=== PATIENT | female | born 1935 | race Caucasian/White ===

== ENCOUNTER 2023-06-23 10:56 | Outpatient (CLI) | payer MEDICARE, SELFPAY ==
[2023-06-23 12:11] LABS: Alanine Aminotransferase 17 U/L (6-35); Albumin Level 4.6 g/dL (3.5-5.1); Alkaline Phosphatase 34 U/L (38-126); Anion Gap 7 mmol/L (8-16); Aspartate Amino Transferase 25 U/L (14-36); Bilirubin,Total 0.8 mg/dL (0.2-1.3); Blood Urea Nitrogen 23 mg/dL (7-17); Calcium 9.1 mg/dL (8.4-10.2); Carbon Dioxide 29 mmol/L (22-30); Chloride 103 mmol/L (98-107); Cholesterol 106 mg/dL (0-200); Estimated Glomerular Filt Rate > 60; Glucose 100 mg/dL (65-110); HDL Direct 40 mg/dL; Sodium 139 mmol/L (137-145); Triglycerides 76 mg/dL (<150)
[2023-06-23 12:20] LABS: LDL Cholesterol Direct 49 mg/dL
== END 2023-06-23 10:57 | disposition home or self-care (01) ==
PROVIDERS: PCP Nurse Practitioner Family
DX: E78.5 Hyperlipidemia, unspecified (principal); I42.8 Other cardiomyopathies
CPT/HCPCS: 36415; 80053; 80061

== ENCOUNTER → 2024-04-12 14:35 | Outpatient (CLI) | payer MEDICARE, SELFPAY ==
--- NOTE | ~2024-04-12 | XR_ITS ---
XR chest 2V Ordering provider: Digna Kim NP History: 88 years Female with . R05.9 - Cough, unspecified x 4days . Comparison: None. FINDINGS: MEDIASTINUM: The cardiac silhouette is slightly enlarged. Left by volar pacemaker is noted. LUNGS: No effusion or pneumothorax. Opacification in the left lower lobe suggestive of atelectasis ve rsus pneumonia. OTHER: No free air under the diaphragm. Degenerative changes of the spine. IMPRESSION: Left basal pneumonia. Reviewed, dictated and finalized at location A. IMPRESSION: Left basal pneumonia.
== END ==
PROVIDERS: PCP Nurse Practitioner Family; Visit Provider Nurse Practitioner Family
DX: J18.9 Pneumonia, unspecified organism (principal)
CPT/HCPCS: 71046

== ENCOUNTER → 2024-05-14 15:13 | Outpatient (CLI) | payer MEDICARE, SELFPAY ==
--- NOTE | ~2024-05-14 | XR_ITS ---
EXAMINATION: XR chest 2V DATE: 05/14/2024 15:27 INDICATION: Cough TECHNIQUE: frontal and lateral views of the chest were obtained. COMPARISON: Chest radiograph dated 04/12/2024 FINDINGS: Unchanged mild linear discoid atelectasis/scarring in the right midlung. No new airspace opacities, p ulmonary edema, pleural effusion or pneumothorax. Cardiomegaly. Three lead pacemaker/AICD seen with l garret projecting over the expected locations of the right atrial appendage, apex of the right ventricl e and with third non venous lead projecting along the left lateral heart border. IMPRESSION: 1. Unchanged mild discoid atelectasis/scarring at the right midlung zone. 2. Cardiomegaly. Reviewed, dictated and finalized at location A.
== END ==
PROVIDERS: PCP Nurse Practitioner Family; Visit Provider Nurse Practitioner Family
DX: I51.7 Cardiomegaly (principal)
CPT/HCPCS: 71046

== ENCOUNTER → 2025-09-18 14:14 | Outpatient (CLI) | payer MEDICARE, SELFPAY ==
--- NOTE | ~2025-09-18 | XR_ITS ---
EXAMINATION: XR shoulder LT min 2V DATE: 09/25/2025 13:16 INDICATION: Pain TECHNIQUE: Left shoulder x-rays were obtained. COMPARISON: None. FINDINGS: The humeral head appears subluxed superiorly and anteriorly. No fracture lucency or dislocation. Advanced degenerative changes about the shoulder noted. Left-sided pacemaking device and wires also noted. IMPRESSION: 1. 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 Some of this displacement could be associated with rotator cuff disruption. 2. No fracture lucency seen. Reviewed, dictated and finalized at location A. ITY CONTROL AUDITOR
--- NOTE | ~2025-09-18 | XR_ITS ---
EXAMINATION: XR knee LT min 4V DATE: 09/25/2025 13:16 INDICATION: Pain TECHNIQUE: Left knee x-ray were obtained. COMPARISON: None. 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 Multiple benign-appearing corticated calcifications present about the joint space which could be associated with previous inflammation, injury or synovial chondromatosis. No large joint effusion seen. IMPRESSION: 1. Severe degenerative changes in the left knee with chronic benign-appearing calcifications and differential considerations discussed above. Reviewed, dictated and finalized at location A. H ARNP IMPRESSION: 1. Severe degenerative changes in the left knee with chronic benign-appearing c alcifications and differential considerations discussed above.
--- NOTE | ~2025-09-18 | XR_ITS ---
EXAMINATION: XR shoulder RT min 2V DATE: 09/25/2025 13:16 INDICATION: Pain TECHNIQUE: Right shoulder x-rays were obtained. COMPARISON: None. FINDINGS: Elevation of the humeral head present with no fracture lucency or dislocation. Advanced degenerative changes about the right shoulder. No gross acute or aggressive bony or soft tissue process seen. IMPRESSION: 1. Degenerative changes about the right shoulder, with elevation of the humeral head which is often associated with rotator cuff disruption or injury. Consider correlation with MRI as clinically appropriate. Reviewed, dictated and finalized at location A. FARMER IMPRESSION: 1. Degenerative changes about the right shoulder, with elevation of the humeral head which is often associated with rotator cuff disruption or injury. Conside r correlation with MRI as clinically appropriate.
--- OUTSIDE RECORDS SUMMARY | 2025-09-18 15:30 | XMS_ITS | Encounter Summary ---
Author Organization [facility] Address [address] [facility] [address] [place] [address] Care Team Providers Care Cover Operator Name Role Phone Dayna Dalton MD Primary Care Provider + [phone] Dayna Dalton MD Primary Care Provider + [phone] Juli Pineda Primary Care Provider Encounter Details Date Type Department Care Team (Late st Contact Info) Description 11/29/2016 Orders Only [facility] Provider, MD Devonte [address] [place] [address] Social History Tobacco Use Types Packs/Day Years Used Date Smoking Tobacco: Never Assessed Comments Unknown Sex and Gender Information Value Date Recorded Sex Assigned at Not on file Legal Sex Female 3:29 AM SUPERVISOR SHEARING Gender Identity Not on file Sexual Orientation Not on file documented as of this encounter Plan of Treatment Not on file documented as of this encounter Procedures Procedure Name Priority Date/Time Associated Diagnosis Comments CARDIOLOGY REPORT 11/29/2016 documented in this encounter Results * CARDIOLOGY REPORT (11/29/2016) Anatomical Region Laterality Modality Other Narrative 11/29/2016 Ordered by an unspecified provider. Historical Provider [facility] ASHLEY MONTOYA Final Result documented in this encounter Visit Diagnoses Not on filedocumented in this encounter Care Teams Cover Operator Relationship Specialty Start Date End Date Dayna Dalton MD PCP - General 01/14/17 12/13/19 Dayna Dalton MD PCP - General 03/07/16 01/13/17 Juli Pineda PA PCP - General Physician Handbag Designer 12/14/19 documented as of this encounter
--- OUTSIDE RECORDS SUMMARY | 2025-09-18 15:30 | XMS_ITS | Encounter Summary ---
Author Organization [facility] Address [address] [facility] [place] [address] Care Team Providers Care Tile Helper Name Role Phone Kwan Aceves MD Unavailable [phone] Celso Pickering MD Unavailable Digna Kim LOBSTERMAN-OFFICE SPECIALIST Primary Care Provider Encounter Details Date Type Department Care Team (Late st Contact Info) Description 09/11/2025 Office Visit External [facility] [address] [place] [address] Farhad Ng, DO 2 [facility] [address] [place] [address] Social History Tobacco Use Types Packs/Day Years Used Date Smoking Tobacco: Former Cigarettes 1 Q uit: 04/03/1979 Smokeless Tobacco: Never Alcohol Use Standard Drinks/Week Comments No 0 (1 standard drink = 0.6 oz pur e alcohol) PHQ-2 Answer Date Recorded PHQ2 TOTAL SCORE 0 02/17/2021 Comments No Sex and Gender Information Value Date Recorded Sex Assigned at Not on file Legal Sex Female 2:13 AM SIGNAL TESTER Gender Identity Not on file Sexual Orientation Not on file documented as of this encounter Functional Status * Is person deaf or have serious hearing difficulty? Answer Date of Assessment Author No 05/30/2014 9:00 PM CDT Jacey mckeon, Lovely Hoover RN * Is person blind or have serious difficulty seeing? Answer Date of Assessment Author No 05/30/2014 9:00 PM CDT Lovely Pryor RN * Does person have serious difficulty walking/climbing stairs? Answer Date of Assessment Author No 05/30/2014 9:00 PM CDT Lovely Pryor RN * Does person have difficulty dressing/bathing? Answer Date of Assessment Author No 05/30/2014 9:00 PM CDT Lovely Pryor RN * Does person have difficulty doing errands alone? Answer Date of Assessment Author No 05/30/2014 9:00 PM CDT Lovely Pryor RN documented as of this encounter Mental Status * Does person have difficulty concentrating/remembering/making decisions? Answer Entry Date Author No 05/30/2014 9:00 PM CDT Lovely Pryor RN documented in this encounter Plan of Treatment Upcoming Encounters Date Type Department Care Team (Late st Contact Info) Description 02/28/2026 1:00 PM CDT Appointment [facility] Cardiovascular Ultrasound [address] [place] [address] Ernestina Olivares, LOBSTERMAN-OFFICE SPECIALIST 2 [facility] [address] [place], [place] [phone] 04/03/2026 2:15 PM CDT Office Visit [facility] 2 [facility], [facility] [address] [place], [place] [phone] Kwan Aceves MD 2 [facility] [address] [place] [phone] 09/08/2026 1:00 PM SIGNAL TESTER Procedure visit [facility] 2 [facility] [address] [place] [address] documented as of this encounter Visit Diagnoses Not on filedocumented in this encounter Care Teams Tile Helper Relationship Specialty Start Date End Date Digna Kim, LOBSTERMAN-OFFICE SPECIALIST [address] [address] [address] [place] [id number] PCP - General Nurse Practitioner 12/14/23 Kwan Aceves MD [address] [address] Cardiovascular Disease 11/13/18 Celso Pickering MD [address] [address] Internal Medicine 08/12/20 documented as of this encounter
--- OUTSIDE RECORDS SUMMARY | 2025-09-18 15:30 | XMS_ITS | Clinical Summary ---
Author Organization [facility] Address [address] [place] [address] Care Team Providers Care Vaccines Solutions Specialist Name Role Phone Juli Pineda Primary Care Provider Allergies Active Allergy Reactions Criticality Noted Date Comments Chandler Inhibitors Cough Reaction: COUGH, Cortisone Hydrocortisone Dizziness Reaction: DIZZINESS, Medications rosuvastatin (CRESTOR) 20 mg tablet Take 20 mg by mouth daily Active carvediloL (COREG) 25 mg tablet Take 25 mg by mouth 2 (two) times a day with meals Active cholecalciferol (VITAMIN D-3) 5,000 unit capsule Take 5,000 Units by mouth daily Active cyanocobalamin (Vitamin B-12) 1,000 mcg tabletIndications :Prevention of Vitamin B12 Deficiency Take 1,000 mcg by mouth daily Active montelukast (SINGULAIR) 10 mg tablet Take 10 mg by mouth nightly Active omega-3 fatty acids 1,250 mg capsule Take 1 capsule by mouth daily Active levocetirizine (XYZAL) 5 mg tablet Take 5 mg by mouth daily 0 Active levothyroxine (SYNTHROID) 75 mcg tablet Take 75 mcg by mouth daily 9 Active losartan (COZAAR) 50 mg tablet Take 50 mg by mouth daily Active cranberry conc/C/Bacill coag (AZO CRANBERRY + PROBIOTIC ORAL) Azo Cranberry + Probiotic 1 tablet daily Active peg 400-propylene glycol (Systane, propylene glycoL,) 0.4-0.3 % ophthalmic solution every 12 hours Activ e rivaroxaban (XARELTO) 20 mg tabletIndications :atrial fibrillation Take 1 tablet (20 mg total) by mouth daily 30 tablet 1 1 Active Active Problems Problem Noted Date Diagnosed Date Other persistent atrial fibrillation 03/03/2020 Assessment & Plan (03/03/2020 3:33 PM CDT): The patient has persistent atrial fibrillation. She has a history of nonischemic cardiomyopathy and is status post biventricular pacing defibrillator. This resulted in significant improvement in her LV function. I am concerned that the onset of atrial fibrillation (accompanied by a decrease in biventricular pacing) will result in progressive LV dysfunction. We discussed options for management. I discussed the merits and drawbacks of AV junction ablation, contrasting it with antiarrhythmic drug therapy and efforts to restore sinus rhythm. The patient is in favor of AV junction ablation, and my office will make the appropriate arrangements to proceed. ICD (implantable cardioverte r-defibrillator), biventricular, in situ 03/03/2020 Overview (02/12/2021): Kline Unify Assura BI-V ICD implanted on 02/09/21 for NICM/CHB. Raheel Diaz MDT RA Lead [id number] 05/30/14 MDT RV Lead [id number] 01/28/14 SJM LV Lead [id number] 10/16/14 Assessment & Plan (03/03/2020 3:33 PM CDT): The patient's device was interrogated and found to be functioning appropriately. No substantial changes to programming were made. The patient's device is followed by Dr. Aceves. Anticoagulation management encounter 03/03/2020 Nonischemic congestive cardiomyopathy 09/30/2014 Overview (01/21/2017): Nonischemic congestive cardiomyopathy ICD (implantable cardioverte r-defibrillator) battery depletion Surgical History Surgery Date Site/Laterality Comments HYSTERECTOMY Hysterectomy BUNIONECTOMY bunionectomy OTHER SURGICAL HISTORY Bi-ventricular ICD Medical History Medical History Date Comments Hx Other Medical Non-ischemic ca rdiomyopathy; Comments: AMB 09/30/2014 - Hx Other Medical congestive hear t failure; Comments: AMB 09/30/2014 - Hx Other Medical hypothyroidism; Comments: AMB 09/30/2014 - Hx Other Medical hypercholestero lemia; Comments: AMB 09/30/2014 - Hx Other Medical arthritis - kne es; Comments: AMB 09/30/2014 - Arrhythmia Atrial fibrillation (HCC) Hypertension Thyroid disease Hyperlipidemia Family History Medical History Relation Name Comments Coronary artery disease Father Justa nary artery disease; Hypertension Father Hypertension; Relation Name Status Comments Father Social History Tobacco Use Types Packs/Day Years Used Date Smoking Tobacco: Never Smokeless Tobacco: Never Comments Unknown Sex and Gender Information Value Date Recorded Sex Assigned at Not on file Legal Sex Female 3:29 AM DRILLER PORTABLE Gender Identity Not on file Sexual Orientation Not on file Last Filed Vital Signs Vital Sign Reading Time Taken Comments Blood Pressure 165/77 02/09/2021 4:35 PM CDT Pulse 60 02/09/2021 4:35 PM CDT Temperature 36 C (96.8 F) 02/09/2021 1:16 PM CDT Respiratory Rate 20 02/09/2021 4:35 PM CDT Oxygen Saturation 98% 02/09/2021 4:35 PM CDT Inhaled Oxygen Concentration - - Weight 92.5 kg (204 lb) 10/07/2020 2:05 PM DRILLER PORTABLE Height 167.6 cm (5' 6) 10/07/2020 2:05 PM DRILLER PORTABLE Body Mass Index 32.93 10/07/2020 2:05 PM DRILLER PORTABLE Plan of Treatment Not on file Medical Devices Implanted Type Area Pipe Crew Foreman Device Identifier Shelf Expiration Date Model / Serial / Lot Particle Medical Inc [id number] System 6-12fr Mvp Venous Closure Vascade - [id number] - [id number] Implanted:Qty : 1 on 03/04/2020 by Celso Pickering MD at [facility] Collagen [employer] 12/04/2021 [id number] / [id number] / [id number] [employer] [id number] Unify Assura Rf Telemetry [id number]-1 Connector [id number] - [id number] - [id number] Implanted:Qty : 1 on 02/09/2021 by Celso Pickering MD at [facility] [id number] 01/14/2023 [id number] / [id number] / Insurance Advance Directives For more information, please contact: [phone] * Full Code (Latest Code Status on File) Date Activated Date Inactivated Comments 03/04/2020 7:29 PM 03/05/2020 10:45 PM Care Teams Vaccines Solutions Specialist Relationship Specialty Start Date End Date Juli Pineda PA PCP - General Physician Public Health 12/14/19
--- OUTSIDE RECORDS SUMMARY | 2025-09-18 15:30 | XMS_ITS | Clinical Summary ---
Author Organization [facility] Address [address] [place] [address] Care Team Providers Care Health Analyst Name Role Phone Digna KimREBECCA Primary Care Provider [phone] Family History Medical History Relation Comments Breast Cancer Neg Hx Social History Tobacco Use Types Packs/Day Years Used Date Smoking Tobacco: Never Assessed Comments Unknown Sex and Gender Information Value Date Recorded Sex Assigned at Not on file Legal Sex Female 9:57 AM SPACE ENGINEER Gender Identity Not on file Sexual Orientation Not on file Plan of Treatment Health Maintenance Due Date Last Done Comments DTaP, Tdap and Td Vaccines (1 - Tdap) 1956 Zoster Vaccines (1 of 2) 1987 Annual Medicare Wellness Visit 2002 COVID-19 Vaccine ( season) 2025 08/17/2023, 09/29/2022, 08/08/2021, Additional history exists Influenza Adult (#1) 2025 08/12/2020, 08/14/2019, 08/18/2018, Additional history exists Pneumococcal Vaccine: 50+ Years Completed 11/13/2018, 09/27/2017, 10/04/2016 RSV Immunization or 60+ Years Completed 09/29/2023 Hepatitis A Vaccines Aged Out No long er eligible based on patient's age to complete this topic Meningococcal B Vaccine Aged Out No l onger eligible based on patient's age to complete this topic Meningococcal Vaccine Aged Out No shannon jayda eligible based on patient's age to complete this topic RSV Immunizations Under 20 Months Aged Out No longer eligible based on patient's age to complete this topic Insurance [facility] [place] [address] Care Teams Health Analyst Relationship Specialty Start Date End Date Digna Kim APNP [address] [phone] PCP - General Nurse Practitioner Family 12/16/23
--- OUTSIDE RECORDS SUMMARY | 2025-09-18 15:31 | XMS_ITS | Clinical Summary ---
Author Organization [facility] Address [address] [place] [address] Care Team Providers Care Yarn Washer Name Role Phone Kwan Aceves MD Unavailable [phone] Celso Pickering MD Unavailable [phone] Digna Kim PHOTOGRAPHER'S ASSISTANT-VIDEO COORDINATOR Primary Care Provider Source Comments [facility] [employer],non-owned Affiliates and Associated Physician Practices is amultiple site organization consisting of ambulatory clinics and hospital sitesin [place], [place], [place]. This disclosure is being madepursuant to the Care Everywhere program and may not contain all information available regarding this patient. Last updated 18.[facility] [employer] Allergies Active Allergy Reactions Criticality Noted Date Comments Chandler Inhibitors Cough 04/03/2014 Hydrocortisone Dizziness 04/03/2014 Made her deathly sick Medications * Be aware that medications may not be up to date on this document. Alwaysverify current medications with the patient. [place]-3 Fatty Acids 1200 MG CAPS Take 2 tablets by mouth 2 times daily Active cyanocobalamin (VITAMIN B-12) 1000 MCG tablet Take 1 (one) tablet by mouth once daily Active Vitamin D3 (CHOLECALCIFERO L) 2000 UNITS CAPS capsule Take 5,000 Units by mouth once daily Taking 5,000 units daily Active carvedilol (COREG) 25 MG tablet Take 1 tablet by mouth 2 times daily with morning and evening meal 180 tablet 3 0 Active levocetirizine (XYZAL) 5 MG tablet Take 1 tablet by mouth once daily 30 tablet 11 0 Active rosuvastatin (CRESTOR) 20 MG tablet Take 1 tablet by mouth at bedtime 90 tablet 3 0 Active levothyroxine (SYNTHROID) 75 MCG tablet Take 1 tablet by mouth once daily 90 tablet 3 0 Active losartan (COZAAR) 50 MG tablet Take 1 tablet by mouth once daily 90 tablet 3 1 Active rivaroxaban (XARELTO) 20 MG tablet Take 1 (one) tablet by mouth once daily 90 tablet 1 Active montelukast (SINGULAIR) 10 MG tablet TAKE 1 TABLET BY MOUTH AT BEDTIME 30 tablet 1 Active busPIRone (Buspar) 15 MG tablet Take 1 (one) tablet by mouth as needed Active oxyBUTYnin (Ditropan) 5 MG tablet Take 3 (three) tablets by mouth once daily Active Cranberry-Vitam in C-Probiotic (AZO CRANBERRY PO) Take 1 Tab by mouth once daily. 09/09/20 25 Discontinu ed(List Clean-Up) Active Problems Problem Noted Date Diagnosed Date Hypothyroidism 09/18/2019 Paroxysmal A-fib 08/27/2014 Overview (01/25/2019): Dayami Cyr, PHOTOGRAPHER'S ASSISTANT-VIDEO COORDINATOR:01.21.19 S/P ICD (internal cardiac defibrillator) procedu re 07/24/2014 Pericardial effusion 05/30/2014 Nonischemic cardiomyopathy 05/06/2014 Benign hypertension 05/06/2014 Dyslipidemia 05/06/2014 Vitamin D deficiency Encounters Date Type Department Care Team Description 09/11/2025 Office Visit External [facility] [address] [place] [address] Farhad Ng DO 09/09/2025 4:00 PM CREATIVE DESIGNER Office Visit [facility] [address] [place] [address], [address] [place] [address] Ernestina Olivares, PHOTOGRAPHER'S ASSISTANT-VIDEO COORDINATOR Nonischemic cardiomyopathy (HCC) (Primary Dx); Biventricular ICD (implantable cardioverter-defibrillat or) in place; Atrial fibrillation, permanent (HCC); Hx of atrioventricular node ablation; On continuous oral anticoagulation; Frequent PVCs; Dyslipidemia; On statin therapy due to risk of future cardiovascular event; Chronic hypertension 09/09/2025 3:15 PM CREATIVE DESIGNER Procedure visit [facility] [address] [place] [address], [address] [place] [address] Nonischemic cardiomyopathy (HCC) from Last 3 Months Immunizations Immunization Administration Dates Next Due INFLUENZA VACCINE, TRIV. (AF LURIA, FLUZONE TRIVALENT; 6MO+) (IIV3) 08/16/2014 Covid Moderna primary monova lent 12+ yr 0.5mL 12/18/2020,11/20/2020 FLU, HISTORIC VACCINE 07/17/2022 INFLUENZA VACCINE 08/14/2019, 8,09/27/2017,2015 INFLUENZA VACCINE, HIGH-DOSE , QUADR. (FLUZONE HIGH-DOSE QUADRIVALENT; 65Y+), 0.7 ML (HD-IIV4) 08/14/2019,08/18/2018,07/08/2016 INFLUENZA VACCINE, QUADR. (F LUZONE; FLULAVAL; FLUARIX; AFLURIA QUADRIVALENT; 6MO+), 0.5 ML (IIV4) 08/12/2020 PNEUMOCOCCAL PCV VACCINE 07/17/2008 PNEUMOCOCCAL PPSV23 11/13/2018 Pneumococcal Pcv13 Conj 09/27/2017,10/04/2016 Family History Medical History Relation Name Comments PR<55(male) Brother masssive PR PR<55(male) Father massive PR Cancer - Other Mother Cancer - Ovarian Mother Cancer - Breast Neg Hx Relation Name Status Comments Brother Father Mother (Age 99) cancer cer vical Social History Tobacco Use Types Packs/Day Years Used Date Smoking Tobacco: Former Cigarettes 1 Q uit: 04/03/1979 Smokeless Tobacco: Never Tobacco Cessation:Counseling Given: No Alcohol Use Standard Drinks/Week Comments No 0 (1 standard drink = 0.6 oz pur e alcohol) PHQ-2 Answer Date Recorded PHQ2 TOTAL SCORE 0 02/17/2021 Comments No Sex and Gender Information Value Date Recorded Sex Assigned at Not on file Legal Sex Female 2:13 AM CREATIVE DESIGNER Gender Identity Not on file Sexual Orientation Not on file Last Filed Vital Signs Vital Sign Reading Time Taken Comments Blood Pressure 140/76 09/09/2025 3:51 PM CREATIVE DESIGNER Pulse 60 09/09/2025 3:51 PM CREATIVE DESIGNER Temperature 36.1 C (96.9 F) 09/09/2025 3:51 PM CREATIVE DESIGNER Respiratory Rate 18 09/09/2025 3:51 PM CREATIVE DESIGNER Oxygen Saturation 97% 09/09/2025 3:51 PM CREATIVE DESIGNER Inhaled Oxygen Concentration - - Weight 87.5 kg (193 lb) 09/09/2025 3:51 PM CREATIVE DESIGNER Height 167.6 cm (5' 6) 09/09/2025 3:51 PM CREATIVE DESIGNER Body Mass Index 31.15 09/09/2025 3:51 PM CREATIVE DESIGNER Plan of Treatment Upcoming Encounters Date Type Department Care Team (Late st Contact Info) Description 02/28/2026 1:00 PM CDT Appointment [facility] Cardiovascular Ultrasound 1 [place] [address] Ernestina Olivares, PHOTOGRAPHER'S ASSISTANT-VIDEO COORDINATOR 2 [facility] [address] [place] [address] 04/03/2026 2:15 PM CDT Office Visit [facility] 2 [facility], [address] [place] [address] Kwan Aceves MD 2 [facility] [address] [place] [phone] 09/08/2026 1:00 PM CREATIVE DESIGNER Procedure visit [facility] 2 [facility], [facility] [address] [place], [place] [id number] Health Maintenance Due Date Last Done Comments DTAP/TDAP/TD VACCINES (1 - Tdap) 1954 ZOSTER VACCINE (1 of 2) 1987 Respiratory Syncytial Virus (RSV) Vaccine Pt: or over 60 yrs (1 - 1-dose 75+ series) 2012 DEPRESSION SCREENING 10/17/2024 04/07/2020 MEDICARE AWV CALENDAR YEAR 2024 04/07/2020 COVID-19 VACCINE (3 - season) 2025 12/18/2020, 11/20/2020 INFLUENZA VACCINE (#1) 2025 2, 08/12/2020, 08/14/2019, Additional history exists BONE DENSITY TESTING Completed 09/06/2016 PNEUMOCOCCAL VACCINE 50+ Completed 019, 09/27/2017, 10/04/2016, Additional history exists HEPATITIS B VACCINE Aged Out No longe r eligible based on patient's age to complete this topic HIB VACCINE Aged Out No longer eligi ble based on patient's age to complete this topic HPV VACCINE Aged Out No longer eligi ble based on patient's age to complete this topic MENINGOCOCCAL (Group B) VACCINE SHARED DECISION-MAKING Aged Out No longer eligible based on patient's age to complete this topic MENINGOCOCCAL GROUPS A/C/Y/W VACCINE Aged Out No longer eligible based on patient's age to complete this topic Procedures Procedure Name Priority Date/Time Associated Diagnosis Comments NM ICD DEVICE INTERROGATE IN PERSON Routine 09/10/2025 9:29 AM CREATIVE DESIGNER Nonischemic cardiomyopathy (HCC) DEXA BONE DENSITY 2 SITES Routine 09/06/2016 2:39 PM CREATIVE DESIGNER Postsurgical menopause from Last 3 Months or Most Recently Relevant to Health Maintenance Results * NM ICD DEVICE INTERROGATE IN PERSON (09/10/2025 9:29 AM CREATIVE DESIGNER) us Kwan Aceves MD [place] - PROFESSIONAL SERVICES Fi nal Result * DEXA BONE DENSITY 55257 (09/06/2016 2:39 PM CREATIVE DESIGNER) Anatomical Region Laterality Modality Radiographic Hermelinda ging 09/06/2016 2:43 PM CREATIVE DESIGNER Impressions 09/06/2016 3:46 PM CREATIVE DESIGNER 1. Normal bone mineral density. 2. No osteopenia or osteoporosis. 3. No risk for fracture. 4. Followup in 2 years. Narrative 09/06/2016 3:46 PM CREATIVE DESIGNER BONE MINERAL DENSITY (DEXA) 09/06/2016: CLINICAL HISTORY: Osteoporosis. FINDINGS: 1. Hip joints: A. BMD 1.337. B. T score 0.6. Z score 3.9. 2. Lumbar spine: A. BMD 1.278. B. T score 0.7. Z score 1.6. Procedure Note Kushal Howell MD - 09/06/2016 BONE MINERAL DENSITY (DEXA) 09/06/2016: CLINICAL HISTORY: Osteoporosis. FINDINGS: 1. Hip joints: A. BMD 1.337. B. T score 0.6. Z score 3.9. 2. Lumbar spine: A. BMD 1.278. B. T score 0.7. Z score 1.6. IMPRESSION 1. Normal bone mineral density. 2. No osteopenia or osteoporosis. 3. No risk for fracture. 4. Followup in 2 years. Rubia SMITH DEXA ORDERABLES Final R esult from Last 3 Months or Most Recently Relevant to Health Maintenance Insurance MEDICARE [employer] MANAGED MEDICARE ADV Advance Directives Documents on File Type Date Recorded Patient Newspaper Vendor Expl anation Adv Directive/Living Will/POA 03/08/2023 12:52 PM * Full Code (Latest Code Status on File) Date Activated Date Inactivated Comments 05/31/2014 12:40 AM 06/02/2014 11:27 AM * Full Code Date Activated Date Inactivated Comments 05/30/2014 7:45 PM 05/31/2014 12:40 AM * Full Code Date Activated Date Inactivated Comments 05/30/2014 11:37 AM 05/30/2014 7:45 PM Care Teams Yarn Washer Relationship Specialty Start Date End Date Digna Kim, PHOTOGRAPHER'S ASSISTANT-VIDEO COORDINATOR [address] [facility] [address] [facility] [address] [place] [address] PCP - General Nurse Practitioner 12/14/23 Kwan Aceves MD 2 [facility] [address] [place] [address] Cardiovascular Disease 11/13/18 Celso Pickering MD 2 [facility] [address] [place] [address] Internal Medicine 08/12/20
== END ==
PROVIDERS: PCP Nurse Practitioner Family; Visit Provider Nurse Practitioner Family
DX: M19.011 Primary osteoarthritis, right shoulder (principal); M19.012 Primary osteoarthritis, left shoulder; M17.12 Unilateral primary osteoarthritis, left knee
CPT/HCPCS: 73030; 73564